=== PATIENT | male | born 1970 | race American Indian/Alaskan Native ===

== ENCOUNTER 2019-01-08 19:22 | Emergency (ER) | payer BC ==
--- NOTE | 2019-01-08 19:49 | Emergency Department Report ---
Blank Doc - Documentation Documentation: This is a 48-year-old male that presents with wheezing and SOB. Has HX of heart failure. Denies any chest pain. This initial assessment/diagnostic orders/clinical plan/treatment(s) is/are subject to change based on patient's health status, clinical progression and re-assessment by fellow clinical providers in the ED. Further treatment and workup at subsequent clinical providers discretion. Patient/guardians urged not to elope from the ED as their condition may be serious if not clinically assessed and managed. Initial orders include: 1- Patient sent to MAIN ED for further evaluation and treatment 2- labs 3- CXR 4- EKG
[2019-01-08 20:41] LABS: Basophils # (Auto) 0.1 K/mm3 (0.0-0.1); Basophils % (Auto) 0.9 % (0.0-1.8); Eosinophils # (Auto) 0.3 K/mm3 (0.0-0.4); Eosinophils % (Auto) 2.3 % (0.0-4.3); Hematocrit 39.6 % (35.5-45.6); Hemoglobin 12.8 gm/dl (11.8-15.2); Lymphocytes # (Auto) 2.2 K/mm3 (1.2-5.4); Lymphocytes % (Auto) 19.6 % (13.4-35.0); Mean Corpuscular HGB Conc 32 % (32-34); Mean Corpuscular Volume 85 fl (84-94); Monocytes # (Auto) 1.2 K/mm3 (0.0-0.8); Monocytes % (Auto) 10.9 % (0.0-7.3); Platelet Count 173 K/mm3 (140-440); Red Blood Count 4.66 M/mm3 (3.65-5.03); Red Cell Distribution Width 14.7 % (13.2-15.2)
[2019-01-08 20:52] LABS: INR 1.06 (0.87-1.13); Partial Thromboplastin Time 31.3 Sec. (24.2-36.6)
[2019-01-08 20:55] LABS: BUN/Creatinine Ratio 10; Blood Urea Nitrogen 11 mg/dL (9-20); Calcium 8.9 mg/dL (8.4-10.2); Hemolysis Index 6
[2019-01-08 20:56] LABS: Creatine Kinase MB 4.8 ng/mL (0.0-4.0)
--- NOTE | 2019-01-08 21:22 | XRay Report ---
PROCEDURE: XR CHEST ROUTINE 2V TECHNIQUE: PA and lateral chest radiographs were obtained. HISTORY: Dyspnea COMPARISONS: 06/21/2018 11. FINDINGS: The cardiomediastinal silhouette appears normal. The lungs are clear. The bones and soft tissues are unremarkable. IMPRESSION: No evidence of acute cardiopulmonary disease. This document is electronically signed by Марина Cohen MD., January 08 2019 10:20:41 PM ET
--- NOTE | 2019-01-08 22:37 | Emergency Department Report ---
ED General Adult HPI - General Chief complaint: Dyspnea/Respdistress Stated complaint: RAPID BREATHING/HYPERTENSION Time Seen by Provider: 01/08/19 19:47 Source: patient Mode of arrival: Ambulatory Limitations: No Limitations - Related Data Home Medications Medication Instructions Recorded Confirmed Last Taken Citalopram Hydrobromide [Celexa] 40 mg PO DAILY 12/01/13 12/01/13 11/30/13 20:00 Losartan/Hydrochlorothiazide 1 each PO QDAY 12/01/13 12/01/13 11/30/13 20:00 [Hyzaar 100-12.5 TAB] Lurasidone HCl [Latuda] 40 mg PO QDAY 12/01/13 12/01/13 11/30/13 20:00 Metoprolol [Lopressor TAB] 25 mg PO BID 12/01/13 12/01/13 11/30/13 20:00 Previous Rx's Medication Instructions Recorded Last Taken Type Furosemide [Lasix TAB] 40 mg PO QDAY #30 tablet 11/27/18 Unknown Rx Metoprolol [Lopressor] 25 mg PO BID #60 tablet 11/27/18 Unknown Rx amLODIPine [Norvasc] 5 mg PO DAILY #30 tab 11/27/18 Unknown Rx hydrALAZINE [Apresoline TAB] 25 mg PO Q8HR #90 tab 11/27/18 Unknown Rx Allergies Allergy/AdvReac Type Severity Reaction Status Date / Time shellfish derived Allergy Rash Verified 01/08/19 19:50 ED Review of Systems ROS: Stated complaint: RAPID BREATHING/HYPERTENSION Other details as noted in HPI ED Past Medical Hx - Past Medical History Hx Hypertension: Yes Hx Psychiatric Treatment: Yes (depression) - Social History Smoking Status: Current Every Day Smoker Substance Use Type: None - Medications Home Medications: Home Medications Medication Instructions Recorded Confirmed Last Taken Type Citalopram Hydrobromide [Celexa] 40 mg PO DAILY 12/01/13 12/01/13 11/30/13 20:00 History Losartan/Hydrochlorothiazide 1 each PO QDAY 12/01/13 12/01/13 11/30/13 20:00 History [Hyzaar 100-12.5 TAB] Lurasidone HCl [Latuda] 40 mg PO QDAY 12/01/13 12/01/13 11/30/13 20:00 History Metoprolol [Lopressor TAB] 25 mg PO BID 12/01/13 12/01/13 11/30/13 20:00 History Furosemide [Lasix TAB] 40 mg PO QDAY #30 tablet 11/27/18 Unknown Rx Metoprolol [Lopressor] 25 mg PO BID #60 tablet 11/27/18 Unknown Rx amLODIPine [Norvasc] 5 mg PO DAILY #30 tab 11/27/18 Unknown Rx hydrALAZINE [Apresoline TAB] 25 mg PO Q8HR #90 tab 11/27/18 Unknown Rx ED Physical Exam - General Limitations: No Limitations ED Course Vital Signs 01/08/19 19:47 Temperature 99.2 F Pulse Rate 90 Respiratory 18 Rate Blood Pressure 139/94 O2 Sat by Pulse 95 Oximetry ED Medical Decision Making - Lab Data Result diagrams: 01/08/19 20:15 01/08/19 20:15 Vital Signs 01/08/19 19:47 Temperature 99.2 F Pulse Rate 90 Respiratory 18 Rate Blood Pressure 139/94 O2 Sat by Pulse 95 Oximetry Lab Results 01/08/19 01/08/19 01/08/19 Range/Units 20:15 20:15 20:15 WBC 11.2 H (4.5-11.0) K/mm3 RBC 4.66 (3.65-5.03) M/mm3 Hgb 12.8 (11.8-15.2) gm/dl Hct 39.6 (35.5-45.6) % MCV 85 (84-94) fl MCH 28 (28-32) pg MCHC 32 (32-34) % RDW 14.7 (13.2-15.2) % Plt Count 173 (140-440) K/mm3 Lymph % (Auto) 19.6 (13.4-35.0) % [place] % (Auto) 10.9 H (0.0-7.3) % Eos % (Auto) 2.3 (0.0-4.3) % Baso % (Auto) 0.9 (0.0-1.8) % Lymph # 2.2 (1.2-5.4) K/mm3 [place] # 1.2 H (0.0-0.8) K/mm3 Eos # 0.3 (0.0-0.4) K/mm3 Baso # 0.1 (0.0-0.1) K/mm3 Seg Neutrophils % 66.3 (40.0-70.0) % Seg Neutrophils # 7.4 (1.8-7.7) K/mm3 PT 14.5 (12.2-14.9) Sec. INR 1.06 (0.87-1.13) APTT 31.3 (24.2-36.6) Sec. Sodium 137 (137-145) mmol/L Potassium 3.8 (3.6-5.0) mmol/L Chloride 99.0 (98-107) mmol/L Carbon Dioxide 26 (22-30) mmol/L Anion Gap 16 mmol/L BUN 11 (9-20) mg/dL Creatinine 1.1 (0.8-1.5) mg/dL Estimated GFR > 60 ml/min BUN/Creatinine Ratio 10 % Glucose 97 (75-100) mg/dL Calcium 8.9 (8.4-10.2) mg/dL Total Creatine Kinase 300 H (55-170) units/L CK-MB (CK-2) 4.8 H (0.0-4.0) ng/mL CK-MB (CK-2) Rel Index 1.6 (0-4) Troponin T < 0.010 (0.00-0.029) ng/mL NT-Pro-B Natriuret Pep 452.0 H (0-450) pg/mL - Radiology Data Radiology results: report reviewed, image reviewed Print Report Referring Physician: KORI JEFFREY Patient Name: ANU TRENT Date of : 1970 Sex: Male Report Date: 2019-01-08 Report Status: Finalized Findings [facility] [address] [place] [address] XRay Report Signed Patient: ANU TRENT MR#: [id number] 73 : 1970 Acct:[id number] Age/Sex: 48 / M ADM Date: 01/08/19 Loc: ED Attending Dr: Ordering Physician: KORI JEFRFEY NP Date of Service: 01/08/19 Procedure(s): XR chest routine 2V Accession Number(s): [id number] cc: KORI JEFFREY NP Fluoro Time In Minutes: PROCEDURE: XR CHEST ROUTINE 2V TECHNIQUE: PA and lateral chest radiographs were obtained. HISTORY: Dyspnea COMPARISONS: 06/21/2018 11. FINDINGS: The cardiomediastinal silhouette appears normal. The lungs are clear. The bones and soft tissues are unremarkable. IMPRESSION: No evidence of acute cardiopulmonary disease. This document is electronically signed by David Cohen MD., January 08 2019 10:20:41 PM ET Transcribed By: ML Dictated By: DAVID COHEN MD Electronically Authenticated By: DAVID COHEN MD Signed Date/Time: 01/08/192121 Critical care attestation.: If time is entered above; I have spent that time in minutes in the direct care of this critically ill patient, excluding procedure time. ED Disposition Condition: Stable Referrals: DERRICK LEONARD MD [Primary Care Provider] - 3-5 Days
[2019-01-08] MEDS ORDERED: LASIX PO ONE (22:50)
--- NOTE | 2019-01-08 22:51 | Emergency Department Report ---
ED General Adult HPI - General Chief complaint: Dyspnea/Respdistress Stated complaint: RAPID BREATHING/HYPERTENSION Time Seen by Provider: 01/08/19 19:47 Source: patient, RN notes reviewed, old records reviewed Mode of arrival: Ambulatory Limitations: No Limitations - History of Present Illness Initial comments: This is a pleasant 48-year-old gentleman who is not known to this provider previously. The patient presents to the emergency room today with a complaint of painless rapid breathing. He has no headache, neck pain, chest pain, abdominal pain. He denies DVT, pulmonary embolus risk factors. Patient may have a history of obesity, congestive heart failure, and probable obstructive sleep apnea. The patient reports that he works 5 days a week, typically 12 hours a day. The patient reports that he gets very sporadic sleep, and does not feel well rested after sleeping. He reports snoring quite a bit. He also reports falling asleep during the day. The patient denies physical pain. The patient reports having had a sleep study 7 years ago, but he can't recall the results. He does not have a local primary care doctor. He does not have a local chuck boner. He may have a history of congestive heart failure, but he is not certain. The patient has presented to this Department multiple times in the past for similar symptoms. He reports that when he was previously here, he was given Lasix and other prescriptions, which improved his symptoms. -: Gradual Consistency: intermittent Improves with: other Worsens with: movement - Related Data Home Medications Medication Instructions Recorded Confirmed Last Taken Citalopram Hydrobromide [Celexa] 40 mg PO DAILY 12/01/13 12/01/13 11/30/13 20:00 Losartan/Hydrochlorothiazide 1 each PO QDAY 12/01/13 12/01/13 11/30/13 20:00 [Hyzaar 100-12.5 TAB] Lurasidone HCl [Latuda] 40 mg PO QDAY 12/01/13 12/01/13 11/30/13 20:00 Previous Rx's Medication Instructions Recorded Last Taken Type Metoprolol [Lopressor] 25 mg PO BID #60 tablet 11/27/18 Unknown Rx Furosemide [Lasix TAB] 40 mg PO QDAY #30 tablet 01/08/19 Unknown Rx Metoprolol [Lopressor TAB] 25 mg PO BID #60 tablet 01/08/19 Unknown Rx amLODIPine [Norvasc] 5 mg PO DAILY #30 tab 01/08/19 Unknown Rx hydrALAZINE [Apresoline TAB] 25 mg PO Q8HR #90 tab 01/08/19 Unknown Rx Allergies Allergy/AdvReac Type Severity Reaction Status Date / Time shellfish derived Allergy Rash Verified 01/08/19 19:50 ED Review of Systems ROS: Stated complaint: RAPID BREATHING/HYPERTENSION Other details as noted in HPI Constitutional: malaise. denies: fever Eyes: denies: eye discharge ENT: denies: congestion Respiratory: shortness of breath Cardiovascular: edema. denies: chest pain, syncope Gastrointestinal: denies: abdominal pain, nausea, vomiting, diarrhea, constipation, hematemesis, melena, hematochezia Genitourinary: denies: dysuria Musculoskeletal: denies: arthralgia Skin: denies: lesions Neurological: denies: headache Psychiatric: denies: anxiety ED Past Medical Hx - Past Medical History Hx Hypertension: Yes Hx Psychiatric Treatment: Yes (depression) - Social History Smoking Status: Current Every Day Smoker Substance Use Type: None - Medications Home Medications: Home Medications Medication Instructions Recorded Confirmed Last Taken Type Citalopram Hydrobromide [Celexa] 40 mg PO DAILY 12/01/13 12/01/13 11/30/13 20:00 History Losartan/Hydrochlorothiazide 1 each PO QDAY 12/01/13 12/01/13 11/30/13 20:00 History [Hyzaar 100-12.5 TAB] Lurasidone HCl [Latuda] 40 mg PO QDAY 12/01/13 12/01/13 11/30/13 20:00 History Metoprolol [Lopressor] 25 mg PO BID #60 tablet 11/27/18 Unknown Rx Furosemide [Lasix TAB] 40 mg PO QDAY #30 tablet 01/08/19 Unknown Rx Metoprolol [Lopressor TAB] 25 mg PO BID #60 tablet 01/08/19 Unknown Rx amLODIPine [Norvasc] 5 mg PO DAILY #30 tab 01/08/19 Unknown Rx hydrALAZINE [Apresoline TAB] 25 mg PO Q8HR #90 tab 01/08/19 Unknown Rx ED Physical Exam - General Limitations: No Limitations General appearance: alert, in no apparent distress, obese - Head Head exam: Present: atraumatic, normocephalic - Eye Eye exam: Present: normal appearance, EOMI. Absent: nystagmus - ENT ENT exam: Present: normal exam, normal orophraynx, mucous membranes moist, normal external ear exam - Neck Neck exam: Present: normal inspection, full ROM. Absent: tenderness, meningismus - Respiratory Respiratory exam: Present: normal lung sounds bilaterally. Absent: respiratory distress - Cardiovascular Cardiovascular Exam: Present: regular rate, normal rhythm, normal heart sounds. Absent: bradycardia, tachycardia, irregular rhythm, systolic murmur, diastolic murmur, rubs, gallop - GI/Abdominal GI/Abdominal exam: Present: soft. Absent: distended, tenderness, guarding, rebound, rigid, pulsatile mass - Rectal Rectal exam: Present: deferred - Extremities Exam Extremities exam: Present: normal inspection, full ROM, pedal edema, other (2+ pulses noted in the bilateral upper, lower extremities. Compartments soft. No long bony tenderness. The pelvis is stable.). Absent: calf tenderness - Back Exam Back exam: Present: normal inspection, full ROM. Absent: tenderness, CVA tenderness (R), CVA tenderness (L), paraspinal tenderness, vertebral tenderness - Neurological Exam Neurological exam: Present: alert, oriented X3, other (Extraocular movements intact. Tongue midline. No facial droop. Facial sensation intact to light touch in the V1, V2, V3 distribution bilaterally. 5 and 5 strength in 4 extremities.. Sensation is intact to light touch in 4 extremities.). Absent: motor sensory deficit - Psychiatric Psychiatric exam: Present: normal affect, normal mood - Skin Skin exam: Present: warm, dry, intact, normal color. Absent: rash ED Course Vital Signs 01/08/19 19:47 Temperature 99.2 F Pulse Rate 90 Respiratory 18 Rate Blood Pressure 139/94 O2 Sat by Pulse 95 Oximetry ED Medical Decision Making - Lab Data Result diagrams: 01/08/19 20:15 01/08/19 20:15 Vital Signs 01/08/19 19:47 Temperature 99.2 F Pulse Rate 90 Respiratory 18 Rate Blood Pressure 139/94 O2 Sat by Pulse 95 Oximetry Lab Results 01/08/19 01/08/19 01/08/19 Range/Units 20:15 20:15 20:15 WBC 11.2 H (4.5-11.0) K/mm3 RBC 4.66 (3.65-5.03) M/mm3 Hgb 12.8 (11.8-15.2) gm/dl Hct 39.6 (35.5-45.6) % MCV 85 (84-94) fl MCH 28 (28-32) pg MCHC 32 (32-34) % RDW 14.7 (13.2-15.2) % Plt Count 173 (140-440) K/mm3 Lymph % (Auto) 19.6 (13.4-35.0) % [place] % (Auto) 10.9 H (0.0-7.3) % Eos % (Auto) 2.3 (0.0-4.3) % Baso % (Auto) 0.9 (0.0-1.8) % Lymph # 2.2 (1.2-5.4) K/mm3 [place] # 1.2 H (0.0-0.8) K/mm3 Eos # 0.3 (0.0-0.4) K/mm3 Baso # 0.1 (0.0-0.1) K/mm3 Seg Neutrophils % 66.3 (40.0-70.0) % Seg Neutrophils # 7.4 (1.8-7.7) K/mm3 PT 14.5 (12.2-14.9) Sec. INR 1.06 (0.87-1.13) APTT 31.3 (24.2-36.6) Sec. Sodium 137 (137-145) mmol/L Potassium 3.8 (3.6-5.0) mmol/L Chloride 99.0 (98-107) mmol/L Carbon Dioxide 26 (22-30) mmol/L Anion Gap 16 mmol/L BUN 11 (9-20) mg/dL Creatinine 1.1 (0.8-1.5) mg/dL Estimated GFR > 60 ml/min BUN/Creatinine Ratio 10 % Glucose 97 (75-100) mg/dL Calcium 8.9 (8.4-10.2) mg/dL Total Creatine Kinase 300 H (55-170) units/L CK-MB (CK-2) 4.8 H (0.0-4.0) ng/mL CK-MB (CK-2) Rel Index 1.6 (0-4) Troponin T < 0.010 (0.00-0.029) ng/mL NT-Pro-B Natriuret Pep 452.0 H (0-450) pg/mL - EKG Data 01/08/19 23:13 EKG shows a sinus rhythm, 84 bpm, left axis deviation, QTC within normal limits, atrial enlargement, poor R progression, borderline left anterior fascicular block, this is an abnormal EKG, this EKG is not consistent with ST elevation myocardial infarction, appears to be unchanged from prior EKG from 11/27/2018. - Radiology Data Radiology results: report reviewed, image reviewed Print Report Referring Physician: KORI JEFFREY Patient Name: ANU TRENT Date of : 1970 Sex: Male Report Date: 2019-01-08 Report Status: Finalized Findings [facility] [address] [place] [address] XRay Report Signed Patient: ANU TRENT MR#: [id number] 73 : 1970 Acct:[id number] Age/Sex: 48 / M ADM Date: 01/08/19 Loc: ED Attending Dr: Ordering Physician: KORI JEFFREY NP Date of Service: 01/08/19 Procedure(s): XR chest routine 2V Accession Number(s): [id number] cc: KORI JEFFREY NP Fluoro Time In Minutes: PROCEDURE: XR CHEST ROUTINE 2V TECHNIQUE: PA and lateral chest radiographs were obtained. HISTORY: Dyspnea COMPARISONS: 06/21/2018 11. FINDINGS: The cardiomediastinal silhouette appears normal. The lungs are clear. The bones and soft tissues are unremarkable. IMPRESSION: No evidence of acute cardiopulmonary disease. This document is electronically signed by David Cohen MD., January 08 2019 10:20:41 PM ET Transcribed By: MLG Dictated By: DAVID COHEN MD Electronically Authenticated By: DAVID COHEN MD Signed Date/Time: 01/08/192121 - Medical Decision Making Differential diagnosis, including but not limited to: Right-sided heart failure, pulmonary hypertension, obstructive sleep apnea, medication refill Assessment and plan: 48-year-old gentleman, pleasant, calm and cooperative, no pulmonary embolus or DVT risk factors, low risk by well's criteria, perc negative, low risk by patito score, heart score, with a primary complaint of rapid breathing, painless, and request for medication refill. When I walk into the room, the patient is sleeping comfortably, and he is in no acute distress. He has minimal lower extremity edema. He is not hypoxic. X-ray of the chest is clear. He probably has undiagnosed and/or untreated obstructive sleep apnea. His presentation today appears to be similar to prior presentations. Extensive discussion had with the patient. Recommended weight loss, diet left cell modifications, compliance with medications, and CPAP or BiPAP therapy for presumed obstructive sleep apnea. Showed patient how to download the good Rx application on his Smart phone device to find affordable prescriptions. We will refill his outpatient prescriptions. He will need to follow up with an outpatient primary care doctor, brake adjuster sleep specialist for presumed obstructive sleep apnea presumed pulmonary hypertension Critical care attestation.: If time is entered above; I have spent that time in minutes in the direct care of this critically ill patient, excluding procedure time. ED Disposition Clinical Impression: Medication refill, Lower extremity edema Disposition: DC-01 TO HOME OR SELFCARE Is pt being admited?: No Does the pt Need Aspirin: No Condition: Stable Additional Instructions: As we discussed, patient most likely has obstructive sleep apnea, which over time, can cause congestive heart failure, pulmonary hypertension, and poor cardiac function. It also places the patient at lifetime risk for hypertension, and stroke. The patient should follow-up with a sleep specialist within the next 2-3 weeks to have an outpatient sleep study performed to confirm the diagnosis, and also to initiate outpatient CPAP therapy, which can improve care home outcomes and quality of life. I recommend the patient lose weight as he is able to, and maintain a diet that is free from sugar, simple carbohydrates, fatty rich foods. The patient should consume plenty of fiber, vegetables, and mean protein. The patient may take the listed prescription medications as directed. The patient should follow-up with a local primary care doctor or chuck boner within the next 2 weeks for outpatient follow-up. Local sleep specialists/lung doctors include Rachana Ulloa [place] Local cardiology practices include [facility]. Local primary care practices include [facility]. Discontinue tobacco consumption. Please return to the emergency room right away with it, worsens or different symptoms, or symptoms not present on the initial emergency room evaluation. Prescriptions: Furosemide [Lasix TAB] 40 mg PO QDAY #30 tablet Metoprolol [Lopressor TAB] 25 mg PO BID #60 tablet amLODIPine [Norvasc] 5 mg PO DAILY #30 tab Referrals: KARSON JORGENSEN MD [Staff Physician] - 3-5 Days RAOUL CORNELIUS MD [Staff Physician] - 3-5 Days PAM PAL MD [Staff Physician] - 3-5 Days [facility] [Provider Group] - 3-5 Days [facility] [Provider Group] - 3-5 Days
[2019-01-08 23:11] VITALS: BP 143/87
== END 2019-01-08 23:56 | disposition home or self-care (01) ==
LOC: ED 19:22
DX: R60.0 Localized edema (principal); R06.82 Tachypnea, not elsewhere classified; I10 Essential (primary) hypertension; F32.9 Major depressive disorder, single episode, unspecified; F17.200 Nicotine dependence, unspecified, uncomplicated; Z76.0 Encounter for issue of repeat prescription; Z91.013 Allergy to seafood
CPT/HCPCS: 36415; 71046; 80048; 82550; 82553; 83880; 84484; 85025; 85610; 85730; 93005; 93010

== ENCOUNTER 2019-06-11 06:42 | Emergency (ER) | payer BC ==
[2019-06-11 06:54] VITALS: BP 139/94
[2019-06-11 07:52] LABS: Hematocrit 43.1 % (35.5-45.6); Hemoglobin 14.4 gm/dl (11.8-15.2); Mean Corpuscular HGB Conc 33 % (32-34); Mean Corpuscular Volume 81 fl (84-94); Platelet Count 175 K/mm3 (140-440); Red Blood Count 5.31 M/mm3 (3.65-5.03); Red Cell Distribution Width 15.3 % (13.2-15.2)
--- NOTE | 2019-06-11 08:11 | Emergency Department Report ---
ED General Adult HPI - General Chief complaint: Upper Respiratory Infection Stated complaint: EDY, SOB Time Seen by Provider: 06/11/19 07:45 Source: patient Mode of arrival: Ambulatory Limitations: No Limitations - History of Present Illness Initial comments: 48 yo comes to ER with several day hx sob. non productive cough and runny nose. No cp. No inc sob- he states he always has sob- but not worsening. no leg swelling. no inc in abd size. no fever. no purulent sputum. did not see pcp allergy to shellfish- rash mom and dad alive and well cig smoker no etoh or drugs pmh chf obese hpld htn md rx metop lasix statin hydral novasc rx for depression - cant remember name -: Gradual, days(s) Consistency: constant Improves with: none Worsens with: none Associated Symptoms: denies other symptoms, cough. denies: shortness of breath Treatments Prior to Arrival: none - Related Data Home Medications Medication Instructions Recorded Confirmed Last Taken Citalopram Hydrobromide [Celexa] 40 mg PO DAILY 12/01/13 12/01/13 11/30/13 20:00 Losartan/Hydrochlorothiazide 1 each PO QDAY 12/01/13 12/01/13 11/30/13 20:00 [Hyzaar 100-12.5 TAB] Lurasidone HCl [Latuda] 40 mg PO QDAY 12/01/13 12/01/13 11/30/13 20:00 Previous Rx's Medication Instructions Recorded Last Taken Type Metoprolol [Lopressor] 25 mg PO BID #60 tablet 11/27/18 Unknown Rx Furosemide [Lasix TAB] 40 mg PO QDAY #30 tablet 01/08/19 Unknown Rx Metoprolol [Lopressor TAB] 25 mg PO BID #60 tablet 01/08/19 Unknown Rx amLODIPine 5 mg PO DAILY #30 tab 01/08/19 Unknown Rx hydrALAZINE [Apresoline TAB] 25 mg PO Q8HR #90 tab 01/08/19 Unknown Rx Azithromycin [Zithromax Z-MARTHA] 250 mg PO DAILY #6 tablet 06/11/19 Unknown Rx Cetirizine HCl [ZyrTEC] 10 mg PO DAILY #30 capsule 06/11/19 Unknown Rx Fluticasone [Flonase] 1 spray NS QDAY #1 bottle 06/11/19 Unknown Rx predniSONE [Deltasone] 20 mg PO DAILY #5 tablet 06/11/19 Unknown Rx Allergies Allergy/AdvReac Type Severity Reaction Status Date / Time shellfish derived Allergy Rash Verified 01/08/19 19:50 ED Review of Systems ROS: Stated complaint: EDY, SOB Other details as noted in HPI Comment: All other systems reviewed and negative ED Past Medical Hx - Past Medical History Previous Medical History?: Yes Hx Hypertension: Yes Hx Psychiatric Treatment: Yes (depression) - Surgical History Past Surgical History?: No - Family History Family history: no significant - Social History Smoking Status: Current Every Day Smoker - Medications Home Medications: Home Medications Medication Instructions Recorded Confirmed Last Taken Type Citalopram Hydrobromide [Celexa] 40 mg PO DAILY 12/01/13 12/01/13 11/30/13 20:00 History Losartan/Hydrochlorothiazide 1 each PO QDAY 12/01/13 12/01/13 11/30/13 20:00 History [Hyzaar 100-12.5 TAB] Lurasidone HCl [Latuda] 40 mg PO QDAY 12/01/13 12/01/13 11/30/13 20:00 History Metoprolol [Lopressor] 25 mg PO BID #60 tablet 11/27/18 Unknown Rx Furosemide [Lasix TAB] 40 mg PO QDAY #30 tablet 01/08/19 Unknown Rx Metoprolol [Lopressor TAB] 25 mg PO BID #60 tablet 01/08/19 Unknown Rx amLODIPine 5 mg PO DAILY #30 tab 01/08/19 Unknown Rx hydrALAZINE [Apresoline TAB] 25 mg PO Q8HR #90 tab 01/08/19 Unknown Rx Azithromycin [Zithromax Z-MARTHA] 250 mg PO DAILY #6 tablet 06/11/19 Unknown Rx Cetirizine HCl [ZyrTEC] 10 mg PO DAILY #30 capsule 06/11/19 Unknown Rx Fluticasone [Flonase] 1 spray NS QDAY #1 bottle 06/11/19 Unknown Rx predniSONE [Deltasone] 20 mg PO DAILY #5 tablet 06/11/19 Unknown Rx ED Physical Exam - General Limitations: No Limitations General appearance: alert, in no apparent distress - Head Head exam: Present: atraumatic, normocephalic - Eye Eye exam: Present: normal appearance - ENT ENT exam: Present: mucous membranes moist - Neck Neck exam: Present: normal inspection - Respiratory Respiratory exam: Present: normal lung sounds bilaterally. Absent: respiratory distress - Cardiovascular Cardiovascular Exam: Present: regular rate, normal rhythm. Absent: systolic murmur, diastolic murmur, rubs, gallop - GI/Abdominal GI/Abdominal exam: Present: soft, normal bowel sounds - Rectal Rectal exam: Present: deferred - Extremities Exam Extremities exam: Present: normal inspection - Back Exam Back exam: Present: normal inspection - Neurological Exam Neurological exam: Present: alert, oriented X3 - Psychiatric Psychiatric exam: Present: normal affect, normal mood - Skin Skin exam: Present: warm, dry, intact, normal color. Absent: rash ED Course Vital Signs 06/11/19 06:53 Temperature 98.0 F Pulse Rate 73 Respiratory 18 Rate Blood Pressure 139/94 O2 Sat by Pulse 95 Oximetry ED Medical Decision Making - Lab Data Result diagrams: 06/11/19 07:32 06/11/19 07:32 - EKG Data EKG shows normal: sinus rhythm Rate: normal - EKG Data Interpretation: nonspecific ST-T wave angela - Radiology Data Radiology results: report reviewed, image reviewed - Medical Decision Making Lab Results 06/11/19 06/11/19 Range/Units 07:32 07:32 WBC 6.6 (4.5-11.0) K/mm3 RBC 5.31 H (3.65-5.03) M/mm3 Hgb 14.4 (11.8-15.2) gm/dl Hct 43.1 (35.5-45.6) % MCV 81 L (84-94) fl MCH 27 L (28-32) pg MCHC 33 (32-34) % RDW 15.3 H (13.2-15.2) % Plt Count 175 (140-440) K/mm3 Sodium 140 (137-145) mmol/L Potassium 4.1 (3.6-5.0) mmol/L Chloride 102.1 (98-107) mmol/L Carbon Dioxide 26 (22-30) mmol/L Anion Gap 16 mmol/L BUN 9 (9-20) mg/dL Creatinine 1.1 (0.8-1.5) mg/dL Estimated GFR > 60 ml/min BUN/Creatinine Ratio 8 % Glucose 96 (75-100) mg/dL Calcium 8.9 (8.4-10.2) mg/dL Total Bilirubin 0.20 (0.1-1.2) mg/dL AST 12 (5-40) units/L ALT 13 (7-56) units/L Alkaline Phosphatase 90 (35-129) units/L Troponin T < 0.010 (0.00-0.029) ng/mL NT-Pro-B Natriuret Pep 388.9 (0-450) pg/mL Total Protein 7.3 (6.3-8.2) g/dL Albumin 3.8 L (3.9-5) g/dL Albumin/Globulin Ratio 1.1 % Vital Signs 06/11/19 06:53 Temperature 98.0 F Pulse Rate 73 Respiratory 18 Rate Blood Pressure 139/94 O2 Sat by Pulse 95 Oximetry labs noted xray noted 12 lead noted treated for uri discussed cessation of smoking dc home with rx and pcp follow up - Differential Diagnosis ro acs/ chf Critical care attestation.: If time is entered above; I have spent that time in minutes in the direct care of this critically ill patient, excluding procedure time. ED Disposition Clinical Impression: URTI (acute upper respiratory infection) Disposition: DC-01 TO HOME OR SELFCARE Is pt being admited?: No Does the pt Need Aspirin: No Condition: Stable Prescriptions: predniSONE [Deltasone] 20 mg PO DAILY #5 tablet Fluticasone [Flonase] 1 spray NS QDAY #1 bottle Azithromycin [Zithromax Z-MARTHA] 250 mg PO DAILY #6 tablet Cetirizine HCl [ZyrTEC] 10 mg PO DAILY #30 capsule Referrals: PRIMARY CARE, [Primary Care Provider] - 3-5 Days [facility] [Outside] - 3-5 Days Forms: Work/School Release Form(ED) Time of Disposition: 08:57
[2019-06-11 08:19] LABS: Alanine Aminotransferase 13 units/L (7-56); Albumin 3.8 g/dL (3.9-5); BUN/Creatinine Ratio 8; Blood Urea Nitrogen 9 mg/dL (9-20); Calcium 8.9 mg/dL (8.4-10.2); Hemolysis Index 6
--- NOTE | 2019-06-11 08:54 | XRay Report ---
CHEST 2 VIEWS INDICATION: Shortness of breath, history of CHF. COMPARISON: 01/08/2019 FINDINGS: Support devices: None. Heart: Within normal limits. Lungs/pleura: No acute air space or interstitial disease. No pneumothorax. Additional findings: None. IMPRESSION: Unremarkable chest x-ray. Signer Name: Rodrigue Meza Jr, MD Signed: 06/11/2019 8:50 AM Workstation Name: [id number]
== END 2019-06-11 09:14 | disposition home or self-care (01) ==
LOC: ED 06:42
DX: J06.9 Acute upper respiratory infection, unspecified (principal); I10 Essential (primary) hypertension; F32.9 Major depressive disorder, single episode, unspecified; F17.200 Nicotine dependence, unspecified, uncomplicated; Z91.013 Allergy to seafood; Z79.899 Other long term (current) drug therapy
CPT/HCPCS: 36415; 71046; 80053; 83880; 84484; 85027; 93005; 93010; 99284